=== PATIENT | female | born 1985 ===

== ENCOUNTER 2017-06-05 19:21 | Emergency (ER) | payer MEDICAID, OTHER ==
[2017-06-05 19:23] VITALS: BMI 32.0
[2017-06-05 19:54] VITALS: BP 125/81; PULSE 80; RESP 18; TEMP 98.1; O2SAT 99
[2017-06-05] MEDS ORDERED: Morphine 4 MG/ML VIAL IVP STA (21:44)
[2017-06-05] MEDS ORDERED: Morphine 4 MG/ML VIAL ONE (21:53)
[2017-06-05 22:06] LABS: BASO % 0.4 % (0.0-2.0); EOS # 0.2 K/uL (0.0-0.7); EOS % 1.6 % (0.0-4.0); HEMOGLOBIN 13.3 g/dL (12.0-16.0); LYMPH # 3.4 K/uL (1.0-4.3); LYMPH % 33.5 % (20.0-40.0); MEAN CELL VOLUME 86.3 fl (81.0-99.0); MEAN CORPUSCULAR HEMOGLOBIN 27.8 pg (27.0-31.0); MEAN CORPUSCULAR HGB CONC 32.2 g/dL (33.0-37.0); MEAN PLATELET VOLUME 8.7 fl (7.2-11.7); MONO # 0.7 K/uL (0.0-0.8); MONO % 6.8 % (0.0-10.0); NEUT # 5.9 K/uL (1.8-7.0); NEUT % 57.7 % (50.0-75.0); NRBC % 0.2 % (0.0-0.0); RBC 4.77 Mil/uL (3.80-5.20); RED CELL DISTRIBUTION WIDTH 15.1 % (11.5-14.5); WHITE BLOOD COUNT 10.1 K/uL (4.8-10.8)
[2017-06-05 22:14] LABS: ALB/GLOB RATIO 1.2 (1.0-2.1); ALBUMIN 4.3 g/dL (3.5-5.0); ALT/SGPT 44 U/L (9-52); AST/SGOT 35 U/L (14-36); BLOOD UREA NITROGEN 12 mg/dl (7-17); CALCIUM 9.5 mg/dL (8.4-10.2); GFR AFRICAN-AMERICAN > 60; GFR NON-AFRICAN AMERICAN > 60
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
[2017-06-05] MEDS ORDERED: Sodium Chloride 0.9% 50 ML IV ONE (22:29)
[2017-06-05] MEDS ORDERED: Iodixanol 320 MG/ML 100 ML BOTTLE IV ONE (22:29)
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
== END 2017-06-06 00:30 | disposition home or self-care (01) ==
LOC: H.ER 19:21
DX: S19.9XXA Unspecified injury of neck, initial encounter (principal); R09.01 Asphyxia; Y04.0XXA Assault by unarmed brawl or fight, initial encounter; Y92.89 Other specified places as the place of occurrence of the external cause
CPT/HCPCS: 70491; 80053; 81025; 85025; 96374; 99285; J2270; Q9967